=== PATIENT | female | born 1960 | race Caucasian/White ===

== ENCOUNTER 2024-06-25 12:10 | Emergency (ER) | payer BC, SELFPAY ==
[2024-06-25 12:20] VITALS: BP 126/95
--- NOTE | 2024-06-25 12:25 | ED.GENMED ---
ED Provider Triage
<Siobhan Duvall PA-C - Last Filed: 06/25/24 12:33>
-
Patient seen by provider in Triage?: Seen in Triage
Attestation: A medical screening examination has been initiated by a qualified medical provider. Based on the assessment performed at this time, it has been determined that an emergent medical condition may exist and the patient has been informed
that further medical evaluation and possible additional diagnostic testing may be needed.
HPI: 63yoF here with L upper dental pain that started yesterday. Started on penicillin (500mg BID) yesterday by urgent care. Woke up today with worsening symptoms and new L maxillary swelling.
GENERAL: Alert , in no apparent distress
EYE: No visual abnormalities.
NECK: Trachea midline
ENT: No visible abnormalities.
LUNGS: No acute respiratory distress
NEUROLOGICAL: Alert and oriented
SKIN: Skin intact. No visible changes.
MUSCULOSKELETAL: Moving extremities normally
PSYCH: Normal and appropriate interaction.
This is a medical evaluation conducted in person to initiate diagnostic evaluation and provide initial therapeutics. Please see further documentation by the treating clinician.
CBC, CMP, and CT facial bones ordered.
History of Present Illness
<Siobhan Duvall PA-C - Last Filed: 06/25/24 12:33>
General
Chief Complaint: Skin Problem
Time Seen by Provider: 06/25/24 13:04
<Yumi Aldana NP - Last Filed: 06/25/24 15:12>
General
Source: patient
Exam Limitations: none
Nursing documentation reviewed up to this point in time: agreed with
History of Present Illness
History of Present Illness:
Patient states she started wearing invisaline approx 1.5 weeks ago. Over the past few days she reports pain above left upper central incisor. Dentist was unable to give her an appointment so she went to yesterday. She was placed on PenVK
500mg, she has had 3 doses. This AM she woke with left facial swelling from mouth to lower left orbit. She denies fever/chills Brought to ED by spouse for eval.
Past History
<Siobhan Duvall PA-C - Last Filed: 06/25/24 12:33>
Past History
ED Past Medical History: GERD, Hypercholesterolemia and Other (Sjogren's, fibromyalgia, TIA)
ED Past Surgical History: Other (Breast reduction)
Social History
Tobacco: Former smoker
Review of Systems
<Yumi Aldana NP - Last Filed: 06/25/24 15:12>
Review of Systems
Allergies reviewed?: Yes
All Other Systems: ROS reviewed and negative except as documented in HPI and ROS
Constitutional: Reports no symptoms
EENT: Reports other (pain above left upper central incisor. No trismus)
Musculoskeletal: Reports no symptoms
Skin: Reports other (left facial swelling)
Neurological: Reports no symptoms
Psychiatric: Reports no symptoms
Phy Exam
<Yumi Aldana NP - Last Filed: 06/25/24 15:12>
General Physical Exam
General Presentation: well appearing and no apparent distress
General age: appears stated age
General Skin: warm and dry
General Habitus: normal
ENT Exam
ENT Exam: other (No dental caries noted. Small white ulceration noted above left upper central incisor, possibly from invisaline rubbing. No discharge.)
Musculoskeletal Exam
Musculoskeletal Exam: full ROM
Skin Exam
Skin Exam: normal color, warm/dry and no rash
Psychiatric Exam
Psychiatric Exam: normal mood/affect
Course
<Siobhan Duvall PA-C - Last Filed: 06/25/24 12:33>
Orders/Labs/Results
Orders:
Orders
06/25/24 12:32
CT Facial Bones W/ Iv Contrast Urgent
Comment:
Reason For Exam: L upper dental pain, maxillary swelling
06/25/24 12:36
Complete Blood Count/With Diff Urgent
Comprehensive Metabolic Panel Urgent
06/25/24 13:12
0.9% Sodium Chloride 1000 ml [Nss] 1,000 ml IV BOLUS
Abnormal Lab Results
06/25/24
12:36
Absolute Monos (auto) 1.0 H 10^3/uL
(0.1-0.6)
Lymphocytes % 19.3 L %
(20.5-51.1)
Monocytes % 14.7 H %
(1.7-9.3)
Eosinophils % 6.3 H %
(0-6)
Glucose 105 H mg/dl
(70-99)
06/25/24 12:36
06/25/24 12:36
Vital Signs
Initial and Last Documented VS:
Initial Vital Signs
Temp Pulse Resp BP Pulse Ox
98.2 F 74 20 126/95 98
06/25/24 12:20 06/25/24 12:20 06/25/24 12:20 06/25/24 12:20 06/25/24 12:20
Last Documented Vital Signs
Temp Pulse Resp BP Pulse Ox
98.2 F 74 20 126/95 98
06/25/24 12:20 06/25/24 12:20 06/25/24 12:20 06/25/24 12:20 06/25/24 12:20
<Yumi Aldana PLUCK TRIMMER - Last Filed: 06/25/24 15:12>
Orders/Labs/Results
Orders:
Orders
06/25/24 12:32
CT Facial Bones W/ Iv Contrast Urgent
Comment:
Reason For Exam: L upper dental pain, maxillary swelling
06/25/24 12:36
Complete Blood Count/With Diff Urgent
Comprehensive Metabolic Panel Urgent
06/25/24 13:12
0.9% Sodium Chloride 1000 ml [Nss] 1,000 ml IV BOLUS
Abnormal Lab Results
06/25/24
12:36
Absolute Monos (auto) 1.0 H 10^3/uL
(0.1-0.6)
Lymphocytes % 19.3 L %
(20.5-51.1)
Monocytes % 14.7 H %
(1.7-9.3)
Eosinophils % 6.3 H %
(0-6)
Glucose 105 H mg/dl
(70-99)
06/25/24 12:36
06/25/24 12:36
Vital Signs
Initial and Last Documented VS:
Initial Vital Signs
Temp Pulse Resp BP Pulse Ox
98.2 F 74 20 126/95 98
06/25/24 12:20 06/25/24 12:20 06/25/24 12:20 06/25/24 12:20 06/25/24 12:20
Last Documented Vital Signs
Temp Pulse Resp BP Pulse Ox
98.2 F 74 20 126/95 98
06/25/24 12:20 06/25/24 12:20 06/25/24 12:20 06/25/24 12:20 06/25/24 12:20
<Yumi Aldana PLUCK TRIMMER - Last Filed: 06/25/24 15:12>
*Critical Care Note
Total Time (30-74mins, 75-104mins- exclusive of procedures): Not Applicable
<Yumi Aldana NP - Last Filed: 06/25/24 15:12>
Update Note
Update Note:
Patient to ED with cmoplaint of left facial swelling. Has been wearing invisaline for 1.5 weeks. She feels it is rubbing against upper gingiva. On exam there is a small white ulceraton. No fullness to suggest abscess. No drainage. CT reviewed.
Abscess can not be ruled out due to artifact. Sinuses appear clear. Labs reviewed, WBC normal. She remains afebrile. Will continue PCN as prescribed, recommend follow up with dentist in AM. Case dicussed with Dr Savage who agrees with
findings and plan.
ED Attending Note
<Siobhan Duvall PA-C - Last Filed: 06/25/24 12:33>
-
Portions of this chart may have been created with voice recognition software.� Occasional wrong word or��sound alike� substitutions may have occurred due to the inherent limitations of voice recognition software.
Discharge Plan
Departure
Patient Disposition: Home (Routine Discharge)
Date of Disposition: 06/25/24
Time of Disposition: 15:06
Patient with high blood pressure during this ER visit?: No
Condition: Good
Covid-19: Not Applicable
Discharge Problem:
Pain, dental
Instructions: Dental abscess, Wound Inside The Mouth
Prescriptions:
No Action
prednisone 50 MG tablet
50 mg PO DAILY Qty: 5 0RF
ketorolac 10 MG tablet
10 mg PO Q6HPRN PRN (Reason: pain) Qty: 20 0RF
promethazine-codeine 6.25-10 mg/5 mL syrup
5 - 10 ml PO Q6H PRN (Reason: cough) Qty: 118 0RF
Referrals:
Don Fuller MD [Family Provider] -
Activity Restrictions/Additional Instructions:
Continue Penicillin as prescribed. Follow up with your dentist in the AM
Interventions
Interventions:
*Risk Screen - Suicide Last Done: 06/25/24 12:20
*General Assessment Last Done: 06/25/24 13:15
*Neglect/Abuse Screening Last Done: 06/25/24 12:20
ED- Fall Risk Assessment Last Done: 06/25/24 13:15
*ED COVID-19 Vaccine History Last Done: 06/25/24 13:15
Discharge Date and Time
Print Language: MACEDONIAN
[2024-06-25 12:44] LABS: % Basophils 0.7 % (0-2); % Eosinophils 6.3 % (0-6); % Immature Granulocytes 0.1 % (0-0.5); % Lymphocytes 19.3 % (20.5-51.1); % Monocytes 14.7 % (1.7-9.3); % Neutrophils 58.9 % (42.2-75.2); Absolute Basophils 0.1 10^3/uL (0-0.2); Absolute Eosinophils 0.4 10^3/uL (0-0.7); Absolute Lymphocytes 1.3 10^3/uL (1.2-3.4); Absolute Neutrophils 3.9 10^3/uL (1.4-6.5); Hematocrit 40.3 % (37.0-47.0); Hemoglobin 13.4 g/dL (12.0-16.0); Mean Corp Hgb Conc. 33.3 g/dL (33.0-37.0); Mean Corpuscular Hgb 27.7 pg (27.0-31.0); Mean Corpuscular Volume 83.3 fL (81.0-99.0); Mean Platelet Volume 8.4 fL (7.4-10.4); Nucleated Red Blood Cells % 0 %; Platelet Count 278 10^3/uL (130-400); Red Blood Cell Count 4.84 10^6/uL (4.20-5.40); Red Cell Dist. Width 12.7 % (11.5-14.5); White Blood Cell Count 6.7 10^3/uL (4.8-10.8)
[2024-06-25 13:02] LABS: ALT (SGPT) 17 U/L (0-35); AST (SGOT) 27 U/L (14-36); Albumin 4.4 g/dl (3.5-5.0); Alkaline Phosphatase 71 U/L (38-126); Blood Urea Nitrogen 13 mg/dl (7-17); Calcium 9.7 mg/dl (8.4-10.2); Carbon Dioxide 25 mmol/L (22-30); Chloride 103 mmol/L (98-107); Glucose 105 mg/dl (70-99); Potassium 4.6 mmol/L (3.5-5.1); Sodium 135 mmol/L (135-145); Total Bilirubin 0.7 mg/dl (0.2-1.3); eGFR > 60.00
[2024-06-25] MEDS: NSS 1000 IV (13:35)
[2024-06-25 15:16] VITALS: BP 127/59
== END 2024-06-25 15:17 | disposition home or self-care (01) ==
LOC: EMR 12:10
PROVIDERS: Physician Assistant; EMERGENCY PHYSICIAN Emergency Medicine; FAMILY PHYSICIAN Family Medicine
DX: K08.89 Other specified disorders of teeth and supporting structures (principal); R22.0 Localized swelling, mass and lump, head; R51.9 Headache, unspecified; K21.9 Gastro-esophageal reflux disease without esophagitis; M79.7 Fibromyalgia; E78.00 Pure hypercholesterolemia, unspecified; M35.00 Sjogren syndrome, unspecified; F41.9 Anxiety disorder, unspecified; F32.A Depression, unspecified; Z86.73 Personal history of transient ischemic attack (TIA), and cerebral infarction without residual deficits; Z87.891 Personal history of nicotine dependence; Z88.2 Allergy status to sulfonamides
CPT/HCPCS: 99284; 96360; 70487; 80053; 85025; Q9967